=== PATIENT | female | born 1940 | race African-American/Black ===

== ENCOUNTER 2025-03-14 15:49 | Inpatient (IN) | payer MEDICARE ==
[~2025-03-14] VITALS: Ht 165.1 cm; Wt 88.0 kg
[2025-03-14 17:35] LABS: BASOPHILS % 0.9 % (0.0-1.0); EOSINOPHILS % 3.0 % (0.0-6.0); LYMPHOCYTES % 39.0 % (18.0-39.1); MONOCYTES % 12.6 % (4.4-11.3); NEUTROPHILS % 44.3 % (38.7-80.0); RED CELL DISTRIBUTION WIDTH 13.4 % (11.7-14.4)
[2025-03-14 18:00] LABS: EST GLOMERULAR FILTRATION RATE 50.0 ML/MIN (>=60)
[2025-03-14] MEDS ORDERED: SODIUM CHLORIDE 0.9% 100 ML ONE (18:55)
[2025-03-14] MEDS ORDERED: IOPAMIDOL 370 MG/ML 100 ML INFUS..BTL INJ ONE (18:55)
[2025-03-14 21:05] VITALS: PULSE 47; RESP 14; TEMP 97.8
[2025-03-14] MEDS ORDERED: Morphine 4mg INJECTION 4 MG/ML INJ IV PRN (22:30)
[2025-03-14] MEDS ORDERED: SODIUM CHLORIDE FLUSH 10 ML SYR INJ PRN (22:30)
[2025-03-15] VITALS (10 sets, daily range): BP systolic 167–197; BP diastolic 61–82; PULSE 45–53; RESP 16–18; TEMP 97.5–98; O2SAT 97–100
[2025-03-15] MEDS ORDERED: FLONASE ALLERG9.9 ML INH (01:46)
[2025-03-15] MEDS ORDERED: ASPIRIN81 MG PO (01:46)
[2025-03-15] MEDS ORDERED: LYRICA50 MG PO (01:46)
[2025-03-15] MEDS ORDERED: ATROVENT HFA12.9 GM INH (01:46)
[2025-03-15] MEDS ORDERED: HYDROCODON-ACE1 EAC9 PO (01:46)
[2025-03-15] MEDS ORDERED: BENICAR20 MG PO (01:46)
[2025-03-15] MEDS ORDERED: TYLENOL325 MG PO (01:46)
[2025-03-15 05:14] LABS: BASOPHILS % 0.9 % (0.0-1.0); EOSINOPHILS % 3.3 % (0.0-6.0); LYMPHOCYTES % 33.7 % (18.0-39.1); MONOCYTES % 10.8 % (4.4-11.3); NEUTROPHILS % 51.1 % (38.7-80.0); RED CELL DISTRIBUTION WIDTH 13.2 % (11.7-14.4)
[2025-03-15 05:54] LABS: EST GLOMERULAR FILTRATION RATE 53.0 ML/MIN (>=60)
[2025-03-15] MEDS: HYDRALAZINE HCL 20 MG/ML VIAL IV PRN (09:57)
[2025-03-15 10:13] LABS: CHOL/HDL RATIO 2.4 (3.0-3.6); LDL CHOLESTEROL 59.0 MG/DL (60-130)
[2025-03-15] MEDS: OLMESARTAN 20 MG TAB PO SCH (11:45)
[2025-03-15] MEDS: CLONIDINE HCL 0.1 MG/24 HR 1 EA PATCH TOP SCH (18:15)
[2025-03-15] MEDS: ACETAMINOPHEN 325 MG TAB PO PRN (18:16)
[2025-03-15] MEDS: ONDANSETRON HCL INJ 2MG/ML 2ML 2 MG/ML VIAL IV PRN (20:55)
[2025-03-16] VITALS (8 sets, daily range): BP systolic 137–159; BP diastolic 40–72; PULSE 53–67; RESP 16–18; TEMP 97.3–98.5; O2SAT 99–100
[2025-03-16] MEDS: INSULIN LISPRO 100 UNIT/1 ML 3ML VIAL SQ SCH (07:30)
[2025-03-16] MEDS: ASPIRIN 81 MG CHEW TAB PO SCH (08:34)
[2025-03-16] MEDS: PREGABALIN 50 MG CAP PO SCH (08:34)
[2025-03-16] MEDS ORDERED: REGADENOSON 0.4 MG/5 ML SYR IV ONE (11:50)
[2025-03-17 00:13] VITALS: BP 140/57; PULSE 58; RESP 17; TEMP 98.3; O2SAT 100
[2025-03-17 05:54] VITALS: BP 148/55; PULSE 60; RESP 16; TEMP 97.3; O2SAT 98
[2025-03-17 08:00] VITALS: BP 147/82; PULSE 52; RESP 17; TEMP 97.8; O2SAT 100
[2025-03-17 09:15] VITALS: BP 147/82; PULSE 52; RESP 17; TEMP 97.8; O2SAT 100
[2025-03-17 12:00] VITALS: BP 156/75; PULSE 56; RESP 17; TEMP 98.5; O2SAT 98
[2025-03-17] MEDS ORDERED: NORVASC5 MG PO (12:51)
== END 2025-03-17 14:25 | disposition home or self-care (01) | DRG 305 ==
LOC: ER 17:05 → ERHOLD 22:29 → MED/SURG2 23:44 → OBSVTOIN 03-16 13:47
PROVIDERS: ADMIT Internal Medicine; ATTEND Internal Medicine
DX: I16.0 Hypertensive urgency (principal); E04.2 Nontoxic multinodular goiter; E11.22 Type 2 diabetes mellitus with diabetic chronic kidney disease; I12.9 Hypertensive chronic kidney disease with stage 1 through stage 4 chronic kidney disease, or unspecified chronic kidney disease; R00.1 Bradycardia, unspecified; I70.1 Atherosclerosis of renal artery; N18.30 Chronic kidney disease, stage 3 unspecified; E05.80 Other thyrotoxicosis without thyrotoxic crisis or storm; K21.9 Gastro-esophageal reflux disease without esophagitis; G89.4 Chronic pain syndrome; R07.89 Other chest pain; M54.9 Dorsalgia, unspecified; R26.2 Difficulty in walking, not elsewhere classified; K59.09 Other constipation; M10.9 Gout, unspecified; Z79.82 Long term (current) use of aspirin; Z79.51 Long term (current) use of inhaled steroids; Z90.49 Acquired absence of other specified parts of digestive tract; Z91.02 Food additives allergy status
CPT/HCPCS: 36415; 71045; 71275; 74174; 78452; 80053; 80061; 82550; 82948; 83690; 84443; 84484; 85025; 93005; 93017; 93306; 94799; 99284; A9502; G0378; J0360; J2405; J2470; J7050; Q9967